=== PATIENT | female | born 1940 | race Caucasian/White ===

== ENCOUNTER 2023-11-17 13:44 | Emergency (ER) | payer MEDICARE, BC, SELFPAY ==
[2023-11-17 14:08] VITALS: BP 145/102; PULSE 109; RESP 18; TEMP 37; O2SAT 97
[2023-11-17 14:20] LABS: EDUAAPPEAR Cloudy; EDUABILI Negative; EDUABLOOD 2+; EDUACOLOR1 Dark; EDUAGLUCOSE Negative; EDUAKETONE Negative; EDUALEUKO 2+; EDUANITRATE Positive; EDUAPROTEIN Negative; EDUAUROBILI 0.2
--- NOTE | 2023-11-17 14:43 | ED.FEMALEGU ---
HPI - Female Genitourinary General Chief complaint: Urogenital-Female Stated complaint: uti symptoms Time Seen by Provider: 11/17/23 14:10 Source: patient and family Mode of arrival: ambulatory Limitations: no limitations History of Present Illness HPI Narrative: 83 yo F presents with family today with c/o urinary frequency, urgency, pressure. Symptoms for approx. 1 month. Afebrile. Denies N/V/d. Last UTI was approx. 4 months ago. Similar symptoms. Leaving to go out of town and wanted to get abx if needed. pt alert and oriented. All systems reviewed and negative except as noted above. Related Data Home Medications Medication Instructions Recorded Confirmed levothyroxine 50 mcg tablet mcg 11/17/23 Allergies Allergy/AdvReac Type Severity Reaction Status Date / Time [id number] Reductase Allergy Hives Verified 11/17/23 14:17 Inhibitor Sulfa (Sulfonamide Allergy Hives Verified 11/17/23 14:17 Antibiotics) Review of Systems Review of Systems: CONSTITUTIONAL: Denies fever, chills, or sweats. EYES: Denies visual changes, redness, or discharge. ENT: Denies rhinorrhea, congestion, sore throat, or otalgia. CARDIOVASCULAR: Denies chest pain, palpitations, or edema. RESPIRATORY: Denies cough or dyspnea. GASTROINTESTINAL: Denies abdominal pain, nausea, vomiting, or diarrhea. GENITOURINARY: Denies dysuria or hematuria. . Reports urinary frequency, urgency, pressure SKIN: Denies rash or itching. MUSCULOSKELETAL: Denies back pain, joint pain, or myalgia. NEUROLOGIC: Denies headache, numbness, or weakness. PSYCHIATRIC: Denies anxiety or depression. All other systems reviewed are negative, except as documented in HPI. PMFSH Comments At time of signature, agree with nursing past medical, surgical, social and family history. There is no relevant family history pertinent to the presenting complaint. Exam Narrative: GENERAL: This is a well-nourished, well-developed patient, in no apparent distress. HEAD: normocephalic, atraumatic. EYES: PERRL. Sclera clear/white. Vision is grossly intact. EARS: External ears normal NOSE: External nose normal NECK: Neck supple, non-tender without lymphadenopathy, masses or thyromegaly. CARDIOVASCULAR: Regular rate and rhythm without murmurs, gallops, or rubs. RESPIRATORY: Clear to auscultation. Breath sounds equal bilaterally. No wheezes, rales, or rhonchi. SKIN: warm, Dry, intact with no suspicious lesions or rash, good texture and turgor. NEURO: awake, alert, and oriented to person, place and time. There were no obvious focal neurologic abnormalities. EXTREMITIES: No joint tenderness, effusion, or edema noted. Course Course Level of Care: Express Care Visit Vital Signs Vital signs: Vital Signs Temperature 37.0 C 11/17/23 14:08 Pulse Rate 109 H 11/17/23 14:08 Respiratory Rate 18 11/17/23 14:08 Blood Pressure 145/102 H 11/17/23 14:08 Pulse Oximetry 97 11/17/23 14:08 Oxygen Delivery Room Air 11/17/23 14:08 Temperature 37.0 C 11/17/23 14:08 Pulse Rate 109 H 11/17/23 14:08 Respiratory Rate 18 11/17/23 14:08 Blood Pressure 145/102 H 11/17/23 14:08 Pulse Oximetry 97 11/17/23 14:08 Oxygen Delivery Room Air 11/17/23 14:08 reviewed MDM - Female Genitourinary MDM Narrative Medical decision making narrative: urinalysis 2+ leukocytes, positive nitrites, 2+ blood. Will treat with ciprofloxacin. Patient is well-appearing. Alert and oriented. Vital signs stable. Nontoxic. Patient is aware of diagnosis, understands and agrees to treatment plan. Anticipatory guidance given. Patient agrees to follow-up as directed and is aware of reasons to seek care at the emergency department. Portions of this record may have been created with voice recognition software Differential Diagnosis Differential diagnosis: Likely urinary tract infection Lab Data Labs: Lab Results 11/17/23 Range/Units 14:18 POC Urine Color
== END 2023-11-17 14:36 | disposition home or self-care (01) ==
PROVIDERS: Emergency Provider Nurse Practitioner Family; PCP Family Medicine
DX: N39.0 Urinary tract infection, site not specified (principal); E03.9 Hypothyroidism, unspecified
CPT/HCPCS: 81003; 87077; 87086; 87088; 87186; 99213; G0463